=== PATIENT | male | born 1955 | race Caucasian/White ===

== ENCOUNTER → 2020-07-30 18:41 | Outpatient (CLI) | payer OTHER | END | disposition home or self-care (01) | LOC: D.LABREF 18:41 | PROVIDERS: ATTEND Orthopaedic Surgery | DX: M17.11 Unilateral primary osteoarthritis, right knee (principal) ==

== ENCOUNTER → 2021-02-16 22:42 | Outpatient (CLI) | payer MEDICARE, BC ==
[2020-09-01 11:14] VITALS: BMI 44.0
[~2021-02-16 22:42] MED LIST: ELIQUIS2.5 MG PO; HYDROCODON-ACE1 EA10 PO; KEFLEX500 MG PO; LISINOPRIL20 MG PO; NORVASC10 MG PO; OXYCODONE HCL10 MG PO; VISTARIL50 MG PO
[2021-02-16 23:05] LABS: BASOPHILS 0.2 % (0-2); EOSINOPHILS 1.7 % (0-7); HEMATOCRIT 44.8 % (42.0-54.0); HEMOGLOBIN 14.5 g/dL (13.5-17.5); IMMATURE GRANULOCYTES 0.6 % (0-5); LYMPHOCYTE ABS# 1.22 10x3/uL (1.32-3.57); LYMPHOCYTES 14.9 % (15-50); MCH 27.1 pg (26.0-34.0); MCHC 32.4 g/dL (31.0-37.0); MCV 83.6 fL (80.0-100.0); MONOCYTES 12.8 % (2-11); NEUTROPHILS 69.8 % (40-80); PLATELET COUNT 217 10x3/uL (130-400); RBC 5.36 10x6/uL (4.20-6.10); RDW 14.5 % (11.5-14.5); WBC 8.2 10x3/uL (4.8-10.8)
[2021-02-17 00:06] LABS: ERYTHROCYTE SEDIMENTATION RATE 3 mm/hr (0-20)
== END | disposition home or self-care (01) ==
LOC: D.LABREF 22:42
PROVIDERS: ATTEND Nurse Practitioner Family
DX: M25.561 Pain in right knee (principal)